=== PATIENT | female | born 1940 | race Caucasian/White ===

== ENCOUNTER 2020-09-09 09:50 | Outpatient (CLI) | payer MEDICARE ==
--- NOTE | 2020-09-09 10:24 | BD ---
EXAM: DEXA bone density examination HISTORY: 80-year-old postmenopausal female for screening COMPARISON: None FINDINGS: Right femoral neck--bone mineral density0.505; T score -3.1 Total proximal right femur--bone mineral density 0.514; T score -3.5 Left femoral neck--bone mineral density0.522; T score -2.9 Total proximal left femur--bone mineral density 0.621; T score -2.6 IMPRESSION: Osteoporosis. This patient has a 10 year WHO fracture risk of a major osteoporotic fractu re of 29% and of a hip fracture of 11%.
== END 2020-09-09 09:51 | disposition home or self-care (01) ==
LOC: BICMAMMO 09:50
PROVIDERS: ATTEND Internal Medicine Hematology & Oncology
DX: Z13.820 Encounter for screening for osteoporosis (principal); M81.0 Age-related osteoporosis without current pathological fracture; Z78.0 Asymptomatic menopausal state
CPT/HCPCS: 77080

== ENCOUNTER 2020-09-10 13:35 | Outpatient (CLI) | payer MEDICARE | END 2020-09-10 13:36 | disposition home or self-care (01) | LOC: CT 13:35 | PROVIDERS: ATTEND Nurse Practitioner Family | DX: S32.010A Wedge compression fracture of first lumbar vertebra, initial encounter for closed fracture (principal); S32.040A Wedge compression fracture of fourth lumbar vertebra, initial encounter for closed fracture; M54.6 Pain in thoracic spine; R91.1 Solitary pulmonary nodule; M48.061 Spinal stenosis, lumbar region without neurogenic claudication | CPT/HCPCS: 72128; 72131 ==

== ENCOUNTER 2020-09-17 07:57 | Observation (INO) | payer MEDICARE ==
[2020-09-17] MEDS ORDERED: Acetaminophen 500 MG TAB ONE (10:18)
[2020-09-17] MEDS ORDERED: Ketorolac Tromethamine 30 MG/ML VIAL ONE (10:18)
[2020-09-17] MEDS ORDERED: Bupivacaine 0.25% HCL 30 ML VIAL ONE (12:16)
[2020-09-17] MEDS ORDERED: Methylene Blue 50 MG/10 ML AMPUL ONE (12:16)
[2020-09-17] MEDS ORDERED: Lidocaine 1% w/Epinephrine 1:100K 20 ML VIAL ONE (12:16)
[2020-09-17] MEDS ORDERED: Midazolam HCl 2 mg/2 ml Vial ONE (12:18)
[2020-09-17] MEDS ORDERED: Fentanyl 100 MCG/2 ML VIAL ONE ×3 (12:18→15:26)
[2020-09-17] MEDS ORDERED: Isosulfan Blue 50 MG/5 ML VIAL ONE (12:18)
[2020-09-17] MEDS ORDERED: Ondansetron PF 4 MG/2 ML Vial ONE ×2 (12:33→16:58)
[2020-09-17] MEDS ORDERED: Dexamethasone 20 MG/5 ML VIAL ONE (12:33)
[2020-09-17] MEDS ORDERED: Lidocaine 1% PF 5 ML VIAL ONE (12:33)
[2020-09-17] MEDS ORDERED: PROPOFOL 200 MG/20 ML VIAL ONE (12:33)
[2020-09-17] MEDS ORDERED: HYDROcodone/Acetaminophen 5/325 mg Tablet ONE (16:58)
[2020-09-17] MEDS ORDERED: Lactated Ringer's 1,000 ML IV SCH (19:30)
[2020-09-17] MEDS ORDERED: Morphine 2 MG/ML VIAL SLOW IVP PRN (19:30)
[2020-09-17] MEDS ORDERED: HYDROcodone/Acetaminophen 7.5/325 mg Tablet PO PRN (19:30)
[2020-09-17] MEDS ORDERED: Dextrose 50% Abboject 50 ML SYRINGE SLOW IVP PRN (19:30)
[2020-09-17] MEDS ORDERED: Dextrose 5% in Water 1,000 ML IV PRN (19:30)
[2020-09-17] MEDS ORDERED: Acetaminophen 500 MG TAB PO PRN (19:30)
[2020-09-17] MEDS ORDERED: Promethazine HCl 25 MG/ML VIAL IM PRN (19:30)
[2020-09-17] MEDS ORDERED: hydrALAZINE 20 MG/ML VIAL SLOW IVP PRN (19:30)
[2020-09-17] MEDS ORDERED: Ondansetron PF 4 MG/2 ML Vial IVP PRN (19:30)
[2020-09-17] MEDS ORDERED: Acetaminophen 325 MG TAB PO PRN (19:30)
[2020-09-17] MEDS: Famotidine 20 MG TAB PO SCH (21:46)
[2020-09-17] MEDS: Docusate 100 MG CAP PO SCH (21:46)
[2020-09-18 01:24] VITALS: BMI 21.6
[2020-09-18 05:30] LABS: #Lymphocytes 1.7 thou/uL (1.20-3.40); #Monocytes 0.9 thou/uL (0.11-0.59); #Neutrophils 8.8 thou/uL (1.40-6.50); %Basophils 0.1 % (0.0-1.0); %Eosinophils 0.3 % (0.0-10.0); %Lymphocytes 15.2 % (21.0-51.0); %Monocytes 7.5 % (0.0-10.0); %Neutrophils 76.9 % (42.0-75.0); Hemoglobin 11.4 g/dL (12.0-16.0); Mean Corpuscular HGB CONC 31.9 g/dL (32.0-36.0); Mean Corpuscular Volume 94.1 fL (78.0-98.0); Mean Platelet Volume 6.8 fL (7.4-10.4); Platelet Count 278 thou/uL (130-400); RBC Distribution Width 12.3 % (11.5-14.5); White Blood Cell (WBC) Count 11.4 thou/uL (4.8-10.8)
[2020-09-18] MEDS: Famotidine 20 MG TAB PO SCH (08:43)
[2020-09-18] MEDS: Docusate 100 MG CAP PO SCH (08:43)
[2020-09-18 11:32] VITALS: BP 123/66; TEMP 98.4
== END 2020-09-18 11:50 | disposition home or self-care (01) ==
LOC: SDC 07:57 → SURG B 17:45
PROVIDERS: ADMIT Specialist; ATTEND Specialist
PROC: 0HTU0ZZ Resection of Left Breast, Open Approach (ICD-10-PCS; principal; 2020-09-17)
PROC: 07B60ZX Excision of Left Axillary Lymphatic, Open Approach, Diagnostic (ICD-10-PCS; 2020-09-17)
DX: C50.812 Malignant neoplasm of overlapping sites of left female breast (principal); D24.2 Benign neoplasm of left breast; M81.0 Age-related osteoporosis without current pathological fracture; Z17.0 Estrogen receptor positive status [ER+]; Z88.5 Allergy status to narcotic agent
CPT/HCPCS: 19303; 38525; 38900; 78195; 85025; 88307; 88309; 88331; 88332; 88334; 88342; A9541; G0378 ×2; Q9968; 36415; J0690; J1100; J1885; J2250; J2405; J2704; J3010; S0020

== ENCOUNTER 2023-02-17 16:08 | Observation (INO) | payer MEDICARE ==
[2023-02-17 16:42] LABS: #Eosinphils 0.1 thou/uL (0.0-0.7); #Monocytes 0.6 thou/uL (0.11-0.59); #Neutrophils 5.8 thou/uL (1.40-6.50); %Basophils 0.3 % (0.0-1.0); %Eosinophils 1.1 % (0.0-10.0); %Lymphocytes 27.6 % (21.0-51.0); %Monocytes 6.8 % (0.0-10.0); Hematocrit 36.9 % (36.0-47.0); Hemoglobin 12.2 g/dL (12.0-16.0); Mean Corpuscular HGB CONC 33.1 g/dL (32.0-36.0); Mean Corpuscular Hemoglobin 30.7 pg (27.0-31.0); Mean Corpuscular Volume 92.7 fl (78.0-98.0); Mean Platelet Volume 9.1 fL (7.4-10.4); Platelet Count 197 10x3/uL (130-400); RBC Distribution Width 13.1 % (11.5-14.5); Red Blood Cell (RBC) Count 3.98 mill/uL (4.20-5.40); White Blood Cell (WBC) Count 9.1 10x3/uL (4.8-10.8)
[2023-02-17 17:12] LABS: Troponin I Less than 0.010 ng/mL (< 0.028)
[2023-02-17 17:13] LABS: ALT (SGPT) 7 U/L (8-55); AST (SGOT) 16 U/L (5-34); Albumin 3.9 g/dL (3.4-4.8); Alkaline Phosphatase 40 U/L (40-110); Anion Gap 12 mmol/L (10-20); BUN (Urea Nitrogen) 17 mg/dL (9.8-20.1); Bilirubin, Total 0.5 mg/dL (0.2-1.2); Calc. Creatinine Clearance 0 mL/min (70-130); Calcium 8.7 mg/dL (7.8-10.44); Carbon Dioxide 24 mmol/L (23-31); Chloride 108 mmol/L (98-107); Estimated GFR 65; Globulin 2.7 g/dL (2.4-3.5); Glucose 101 mg/dL (83-110); Potassium 4.5 mmol/L (3.5-5.1); Protein, Total 6.6 g/dL (5.8-8.1); Sodium 139 mmol/L (136-145)
[2023-02-17] MEDS ORDERED: Ondansetron ODT 4 MG TAB PO PRN (19:03)
[2023-02-17] MEDS ORDERED: hydrALAZINE 20 MG/ML VIAL SLOW IVP PRN (19:03)
[2023-02-17] MEDS ORDERED: Acetaminophen 325 MG TAB PO PRN (19:03)
[2023-02-17] MEDS ORDERED: Ondansetron PF 4 MG/2 ML Vial IVP PRN (19:03)
[2023-02-17 20:30] VITALS: BMI 20.9
[2023-02-17] MEDS ORDERED: Atorvastatin Calcium 40 MG TAB PO SCH (21:00)
[2023-02-18] MEDS ORDERED: Aspirin 81 mg Enteric Coated Tablet PO SCH (09:00)
[2023-02-18 12:25] VITALS: BP 154/74; TEMP 98.9
[2023-02-18] MEDS ORDERED: Clopidogrel Bisulfate 75 MG TAB PO SCH (15:00)
[2023-02-19] MEDS ORDERED: Clopidogrel Bisulfate 75 MG TAB PO SCH (09:00)
== END 2023-02-18 16:50 | disposition home or self-care (01) ==
LOC: ERS 16:08 → 2SE 18:25
PROVIDERS: ADMIT Physician Assistant; ATTEND Internal Medicine
DX: I63.9 Cerebral infarction, unspecified (principal); I08.3 Combined rheumatic disorders of mitral, aortic and tricuspid valves; I10 Essential (primary) hypertension; C50.919 Malignant neoplasm of unspecified site of unspecified female breast; K21.9 Gastro-esophageal reflux disease without esophagitis; Z90.13 Acquired absence of bilateral breasts and nipples; Z79.899 Other long term (current) drug therapy; Z79.82 Long term (current) use of aspirin; Z88.1 Allergy status to other antibiotic agents; Z88.6 Allergy status to analgesic agent; Z90.89 Acquired absence of other organs
CPT/HCPCS: 70553; 80053; 84484; 85025; 93005; 93306; 93880; 99285; G0378 ×3; 36415

== ENCOUNTER 2023-11-27 13:08 | Outpatient (CLI) | payer MEDICARE | END 2023-11-27 13:09 | disposition home or self-care (01) | LOC: BICMAMMO 13:08 | PROVIDERS: ATTEND Nurse Practitioner Adult Health | DX: Z13.820 Encounter for screening for osteoporosis (principal); Z08 Encounter for follow-up examination after completed treatment for malignant neoplasm; M81.0 Age-related osteoporosis without current pathological fracture; Z85.3 Personal history of malignant neoplasm of breast | CPT/HCPCS: 77065; 77080; G0279 ==